=== PATIENT | female | born 1995 | race Caucasian/White ===

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

== ENCOUNTER 2017-12-28 21:16 | Emergency (ER) | payer OTHER ==
[~2017-12-28] VITALS: Ht 157.5 cm; Wt 64.1 kg
[~2017-12-28 21:16] MED LIST: ZOFRAN4 MG PO
[2017-12-28 23:22] LABS: SERUM ETHYL ALCOHOL < 10 mg/dL
[2017-12-28 23:31] LABS: QUANTITATIVE HCG < 4.0 MIU/ML
[2017-12-29 00:06] LABS: APPEARANCE SL.HAZY ((CLEAR)); BILIRUBIN NEGATIVE; BLOOD NEGATIVE; COLOR YELLOW ((YELLOW)); GLUCOSE (STRIP) NEGATIVE; KETONES 5; LEUKOCYTES NEGATIVE; NITRITE NEGATIVE; PROTEIN (STRIP) 30; UROBILINOGEN 0.2 MG/DL (0.2-1.0)
[2017-12-29 00:22] LABS: RED BLOOD CELLS 0-5 /HPF (0-5); WHITE BLOOD CELLS 15-20 /HPF (0-5)
[2017-12-29 00:24] LABS: BACTERIA 2+ /HPF; EPITHELIAL CELLS 1+ /HPF; MUCUS 3+ /LPF; UCUL ADDED? YES
[2017-12-29 01:04] LABS: SOURCE SWAB
[2017-12-29 01:18] VITALS: BP 134/68
[2017-12-29 09:44] LABS: TREPONEMA ANTIBODY NEGATIVE (NEGATIVE)
[2017-12-29 11:49] LABS: HEPATITIS B SURFACE ANTIGEN Nonreactive; HEPATITIS C ANTIBODY Nonreactive
[2017-12-29 11:50] LABS: ANTI-HEPATITIS A VIRUS (IGM) Nonreactive
[2017-12-29 11:51] LABS: ANTI-HEPATITIS B CORE (IGM) Nonreactive
[2017-12-29 11:52] LABS: HIV-1/2 AB/AG COMBO Nonreactive
== END 2017-12-29 01:19 | disposition home or self-care (01) ==
LOC: EME 21:16
PROVIDERS: Emergency Medicine
DX: T76.21XA Adult sexual abuse, suspected, initial encounter (principal); R51 Headache; F10.99 Alcohol use, unspecified with unspecified alcohol-induced disorder; F17.200 Nicotine dependence, unspecified, uncomplicated
CPT/HCPCS: 80074; 81003; 84702; 86780; 87086; 87389; 87491; 87591; 99281; 99285; G0480; J0696

== ENCOUNTER 2018-03-19 18:16 | Emergency (ER) | payer OTHER ==
[~2018-03-19] VITALS: Ht 157.5 cm; Wt 62.3 kg
[2018-03-19 19:44] LABS: APPEARANCE CLEAR ((CLEAR)); BILIRUBIN NEGATIVE; BLOOD SMALL; COLOR YELLOW ((YELLOW)); GLUCOSE (STRIP) NEGATIVE; KETONES NEGATIVE; LEUKOCYTES NEGATIVE; NITRITE NEGATIVE; PROTEIN (STRIP) NEGATIVE; SPECIFIC GRAVITY 1.024 (1.000-1.030); UROBILINOGEN 0.2 MG/DL (0.2-1.0)
[2018-03-19 20:03] LABS: BACTERIA NONE SEEN /HPF; EPITHELIAL CELLS RARE /HPF; MUCUS 1+ /LPF; RED BLOOD CELLS 0-5 /HPF (0-5); UCUL ADDED? NO; WHITE BLOOD CELLS 0-5 /HPF (0-5)
[2018-03-19 20:59] LABS: HEMATOCRIT 40.7 % (36.0-46.0); HEMOGLOBIN 13.9 G/DL (11.9-15.5); MCH 30.6 PG (29.0-34.0); MCHC 34.2 G/DL (30.0-36.0); MCV 89.6 FL (83-99); PLATELET COUNT 212 K/uL (156-360); RBC DIS.WIDTH-SD 42.4 % (39-53); RED BLOOD COUNT 4.54 M/uL (3.80-5.20); WHITE BLOOD COUNT 7.9 K/uL (4.1-10.2)
[2018-03-19 21:11] LABS: ALBUMIN 4.5 g/dL (3.2-4.8); CHLORIDE 108 mEq/L (99-109); POTASSIUM 4.1 mEq/L (3.7-5.4); SODIUM 144 mEq/L (136-147)
[2018-03-19 21:13] LABS: GLUCOSE 77 mg/dL (70-99)
[2018-03-19 21:14] LABS: TOTAL PROTEIN 7.1 g/dL (6.4-8.3)
[2018-03-19 21:15] LABS: TOTAL BILIRUBIN 0.4 mg/dL (0.0-1.0)
[2018-03-19 21:17] LABS: ALKALINE PHOSPHATASE 77 IU/L (3-129); CREATININE 0.8 mg/dL (0.6-1.3); GFR ESTIMATE (CALCULATED) > 59 mL/min/
[2018-03-19 21:18] LABS: UREA NITROGEN (BUN) 10 mg/dL (9-23)
[2018-03-19 21:19] LABS: AST (GOT) 17 IU/L (2-34)
[2018-03-19 21:20] LABS: ALT (GPT) 12 IU/L (3-49)
[2018-03-19 21:27] LABS: QUANTITATIVE HCG < 4.0 MIU/ML
[2018-03-19 23:08] VITALS: BP 111/66
[2018-03-20 00:28] LABS: CANDIDA DNA PROBE NEGATIVE; GARDNERELLA DNA PROBE POSITIVE; TRICHOMONAS DNA PROBE NEGATIVE
== END 2018-03-19 23:09 | disposition home or self-care (01) ==
LOC: EME 18:16
PROVIDERS: Physician Assistant
DX: N93.8 Other specified abnormal uterine and vaginal bleeding (principal); N89.8 Other specified noninflammatory disorders of vagina; F17.200 Nicotine dependence, unspecified, uncomplicated
CPT/HCPCS: 80053; 81003; 81025; 84702; 85027; 86900; 86901; 87210; 87480; 87491; 87510; 87591; 87660; 99281; 99284